=== PATIENT | female | born 1940 | race African-American/Black ===

== ENCOUNTER 2016-09-16 12:01 | Inpatient (IN) | payer MEDICARE ==
[~2016-09-16] VITALS: Ht 157.5 cm; Wt 85.5 kg
[~2016-09-16 12:01] MED LIST: AMOXICILLIN500 MG PO; ASPIRIN LOW DOS81 M2 PO; ASPIRIN LOW DOS81 MG PO; ATORVASTATIN CA20 MG PO; CARDIZEM CD 180 PO; CARDIZEM CD240 MG PO; CEPHALEXIN500 MG PO; CHLORTHALIDONE25 MG PO; CIPRO500 MG OR; CIPROFLOXACN500 MG PO; CLONIDINE0.1 MG PO; CRESTOR10 MG PO; DILTIAZEM90 M1 PO; FERR SULFATE325 MG PO; FUROSEMIDE40 MG PO; GLIPIZIDE ER5 MG PO; GLIPIZIDE10 MG PO; JANUVIA50 MG PO; LISINOPRIL20 MG PO; LYRICA50 MG PO; METRONIDAZOL500 MG PO; MULTI VIT PO; NESINA25 MG PO; NO MEDS; PERCOCET 5/325M1 TAB OR; PHENERGAN25 MG/TAB PO; ROBITUSSIN AC10 ML PO; TRAMADOL HCL50 MG PO; ULTRAM50 MG PO
[2016-09-16] MEDS ORDERED: GLIPIZIDE10 MG PO (12:23)
[2016-09-16] MEDS ORDERED: LISINOPRIL10 MG PO (12:23)
[2016-09-16] MEDS ORDERED: PAIN RELIEF PO (12:24)
[2016-09-16 13:19] LABS: HEMATOCRIT 36.1 % (37.0-47.0); HEMOGLOBIN 10.8 g/dl (12.0-16.0); MEAN CELL VOLUME 72.3 fL CALC (80.0-100.0); MEAN CORPUSCULAR HGB 21.6 pG CALC (26.0-32.0); MEAN CORPUSCULAR HGB CONC 29.9 g/L CALC (32.0-36.0); NEUT# 19.34 thou/uL (2.00-7.15); RED BLOOD COUNT 4.99 mill/uL (4.20-5.60); RED CELL DISTRI WIDTH 15.8 % (11.5-15.5)
[2016-09-16 13:29] LABS: BILIRUBIN, TOTAL 0.3 mg/dL (0.0-1.4); CALCIUM 10.1 mg/dL (8.4-10.2); CREATININE 2.8 mg/dL (0.5-1.0); TOTAL PROTEIN 7.1 g/dL (6.3-8.2)
[2016-09-16 13:32] LABS: POTASSIUM 6.7 mmol/l (3.5-5.1)
[2016-09-16 17:36] LABS: CALCIUM 8.7 mg/dL (8.4-10.2); CREATININE 2.8 mg/dL (0.5-1.0)
[2016-09-16 17:40] LABS: POTASSIUM 6.6 mmol/l (3.5-5.1)
[2016-09-16 21:30] VITALS: BP 140/42
[2016-09-16 21:45] VITALS: BP 134/66
[2016-09-16 21:58] LABS: CALCIUM 8.3 mg/dL (8.4-10.2); CREATININE 2.7 mg/dL (0.5-1.0)
[2016-09-16 22:00] VITALS: BP 140/54
[2016-09-16 22:01] LABS: POTASSIUM 6.5 mmol/l (3.5-5.1)
[2016-09-16 22:03] LABS: URINE BILIRUBIN - DIPSTICK NEGATIVE (NEGATIVE); URINE BLOOD DIPSTICK LARGE (NEGATIVE); URINE CLARITY CLOUDY; URINE COLOR YELLOW; URINE GLUCOSE - DIPSTICK 100 mg/dL (NEGATIVE); URINE KETONE NEGATIVE (NEGATIVE); URINE LEUK ESTERASE NEGATIVE (NEGATIVE); URINE NITRITE - DIPSTICK NEGATIVE (Negative); URINE PH 5.5 (4.5-8.0); URINE PROTEIN - DIPSTICK >=300 mg/dL (NEG-TRACE); URINE UROBILINOGEN - DIPSTICK 0.2 E.U./dL (0.2)
[2016-09-16 22:09] LABS: URINE BACTERIA FEW hpf; URINE HYALINE CAST FEW lpf (NONE-RARE); URINE MUCUS MODERATE hpf (NONE-FEW); URINE RBC 25-50 RBC/hpf (0-5); URINE SQUAMOUS EPITHELIAL CELL FEW EPI/hpf (0-FEW); URINE WAXY CAST FEW lpf
[2016-09-16 22:15] VITALS: BP 139/52
[2016-09-16 23:00] VITALS: BP 156/53
[2016-09-17] VITALS (17 sets, daily range): BP systolic 110–198; BP diastolic 41–110
[2016-09-17 02:51] LABS: CREATININE 2.2 mg/dL (0.5-1.0)
[2016-09-17 02:54] LABS: POTASSIUM 5.7 mmol/l (3.5-5.1)
[2016-09-17 06:46] LABS: HEMATOCRIT 30.5 % (37.0-47.0); HEMOGLOBIN 8.9 g/dl (12.0-16.0); IMMATURE GRANULOCYTES 1.4 % (0.0-1.0); MEAN CELL VOLUME 74.2 fL CALC (80.0-100.0); MEAN CORPUSCULAR HGB 21.7 pG CALC (26.0-32.0); MEAN CORPUSCULAR HGB CONC 29.2 g/L CALC (32.0-36.0); NEUT# 11.94 thou/uL (2.00-7.15); RED BLOOD COUNT 4.11 mill/uL (4.20-5.60); RED CELL DISTRI WIDTH 15.9 % (11.5-15.5)
[2016-09-17 07:08] LABS: CALCIUM 8.1 mg/dL (8.4-10.2); POTASSIUM 5.1 mmol/l (3.5-5.1)
[2016-09-18] VITALS (18 sets, daily range): BP systolic 120–203; BP diastolic 37–106
[2016-09-18 04:55] LABS: CALCIUM 8.3 mg/dL (8.4-10.2); CREATININE 1.2 mg/dL (0.5-1.0); POTASSIUM 4.5 mmol/l (3.5-5.1)
[2016-09-18 05:57] LABS: HEMATOCRIT 31.4 % (37.0-47.0); HEMOGLOBIN 9.1 g/dl (12.0-16.0); IMMATURE GRANULOCYTES 0.9 % (0.0-1.0); MEAN CELL VOLUME 74.6 fL CALC (80.0-100.0); MEAN CORPUSCULAR HGB 21.6 pG CALC (26.0-32.0); NEUT# 10.41 thou/uL (2.00-7.15); RED BLOOD COUNT 4.21 mill/uL (4.20-5.60); RED CELL DISTRI WIDTH 15.9 % (11.5-15.5)
[2016-09-19] VITALS (10 sets, daily range): BP systolic 95–210; BP diastolic 41–79
[2016-09-19 04:42] LABS: CALCIUM 8.4 mg/dL (8.4-10.2); CREATININE 1.1 mg/dL (0.5-1.0); POTASSIUM 4.5 mmol/l (3.5-5.1)
[2016-09-19 05:29] LABS: HEMOGLOBIN 8.6 g/dl (12.0-16.0); MEAN CELL VOLUME 74.8 fL CALC (80.0-100.0); MEAN CORPUSCULAR HGB 21.4 pG CALC (26.0-32.0); MEAN CORPUSCULAR HGB CONC 28.7 g/L CALC (32.0-36.0); NEUT# 11.05 thou/uL (2.00-7.15); RED BLOOD COUNT 4.01 mill/uL (4.20-5.60); RED CELL DISTRI WIDTH 15.9 % (11.5-15.5)
[2016-09-19 06:36] LABS: URINE BLOOD DIPSTICK LARGE (NEGATIVE); URINE CLARITY CLEAR; URINE COLOR YELLOW; URINE GLUCOSE - DIPSTICK 100 mg/dL (NEGATIVE); URINE KETONE NEGATIVE (NEGATIVE); URINE LEUK ESTERASE SMALL (Negative); URINE NITRITE - DIPSTICK POSITIVE (Negative); URINE PH 5.5 (4.5-8.0); URINE PROTEIN - DIPSTICK 100 mg/dL (NEG-TRACE)
[2016-09-19 06:55] LABS: URINE BILIRUBIN - DIPSTICK NEGATIVE (NEGATIVE); URINE RBC TNTC RBC/hpf (0-5)
[2016-09-19 06:56] LABS: URINE BACTERIA FEW hpf; URINE HYALINE CAST RARE lpf (NONE-RARE); URINE MUCUS FEW hpf (NONE-FEW); URINE SQUAMOUS EPITHELIAL CELL RARE EPI/hpf (0-FEW)
[2016-09-19 06:57] LABS: URINE FINE GRAN CAST MODERATE lpf
[2016-09-19 06:59] LABS: URINE RED BLOOD CELL CAST RARE lpf
[2016-09-20 01:24] VITALS: BP 139/70
[2016-09-20 05:27] VITALS: BP 147/71
[2016-09-20 06:17] LABS: HEMATOCRIT 27.3 % (37.0-47.0); HEMOGLOBIN 7.9 g/dl (12.0-16.0); IMMATURE GRANULOCYTES 1.9 % (0.0-1.0); MEAN CORPUSCULAR HGB CONC 28.9 g/L CALC (32.0-36.0); NEUT# 12.85 thou/uL (2.00-7.15); RED BLOOD COUNT 3.59 mill/uL (4.20-5.60); RED CELL DISTRI WIDTH 16.4 % (11.5-15.5)
[2016-09-20 06:37] LABS: ALBUMIN 2.8 g/dL (3.2-5.0); BUN 25 mg/dL (8-23); CALCIUM 8.6 mg/dL (8.4-10.2); CARBON DIOXIDE 23 mmol/l (22-30); CHLORIDE 110 mmol/l (95-108); GFR 54 ML/MIN (>=60 (CALC)); GFR FOR AFR.AMER. > 60 ML/MIN (>=60 (CALC)); GLUCOSE 187 mg/dL (82-115); POTASSIUM 4.5 mmol/l (3.5-5.1); SODIUM 140 mmol/l (137-146)
[2016-09-20 11:02] VITALS: BP 141/71
[2016-09-20 15:55] VITALS: BP 165/56
[2016-09-20 19:23] VITALS: BP 176/62
[2016-09-20 23:32] VITALS: BP 147/63
[2016-09-21] VITALS (10 sets, daily range): BP systolic 119–172; BP diastolic 32–66
[2016-09-21 03:00] LABS: ANION GAP 12 (6-22 (CALC)); BUN 24 mg/dL (8-23); BUN/CREATININE RATIO 26 (12-20 (CALC)); CALCIUM 8.5 mg/dL (8.4-10.2); CARBON DIOXIDE 21 mmol/l (22-30); CHLORIDE 112 mmol/l (95-108); GFR 54 ML/MIN (>=60 (CALC)); GFR FOR AFR.AMER. > 60 ML/MIN (>=60 (CALC)); GLUCOSE 152 mg/dL (82-115); SODIUM 141 mmol/l (137-146)
[2016-09-21 03:51] LABS: HEMATOCRIT 23.9 % (37.0-47.0); IMMATURE GRANULOCYTES 3.5 % (0.0-1.0); MEAN CELL VOLUME 75.9 fL CALC (80.0-100.0); MEAN CORPUSCULAR HGB 22.2 pG CALC (26.0-32.0); MEAN CORPUSCULAR HGB CONC 29.3 g/L CALC (32.0-36.0); NEUT# 14.95 thou/uL (2.00-7.15); RED BLOOD COUNT 3.15 mill/uL (4.20-5.60); RED CELL DISTRI WIDTH 16.7 % (11.5-15.5)
[2016-09-21] MEDS ORDERED: NEURONTIN300 MG PO (11:11)
[2016-09-21] MEDS ORDERED: IRON325 M1 PO (11:12)
[2016-09-21 18:37] LABS: HEMATOCRIT 25.2 % (37.0-47.0); HEMOGLOBIN 7.5 g/dl (12.0-16.0)
[2016-09-22 04:16] VITALS: BP 162/83
[2016-09-22 05:48] LABS: HEMATOCRIT 25.8 % (37.0-47.0); HEMOGLOBIN 7.7 g/dl (12.0-16.0); IMMATURE GRANULOCYTES 3.3 % (0.0-1.0); MEAN CELL VOLUME 79.4 fL CALC (80.0-100.0); MEAN CORPUSCULAR HGB 23.7 pG CALC (26.0-32.0); MEAN CORPUSCULAR HGB CONC 29.8 g/L CALC (32.0-36.0); NEUT# 17.17 thou/uL (2.00-7.15); RED BLOOD COUNT 3.25 mill/uL (4.20-5.60); RED CELL DISTRI WIDTH 18.2 % (11.5-15.5)
[2016-09-22 06:00] LABS: ALBUMIN 2.9 g/dL (3.2-5.0); BILIRUBIN, TOTAL 1.6 mg/dL (0.0-1.4); CALCIUM 8.5 mg/dL (8.4-10.2); CREATININE 1.2 mg/dL (0.5-1.0); POTASSIUM 4.3 mmol/l (3.5-5.1); TOTAL PROTEIN 5.6 g/dL (6.3-8.2)
[2016-09-22 07:49] VITALS: BP 148/55
[2016-09-22 11:09] VITALS: BP 186/50
[2016-09-22 15:05] VITALS: BP 140/50
[2016-09-22 15:20] VITALS: BP 186/50
== END 2016-09-22 16:08 | DRG 871 ==
LOC: ED 12:01 → ED-I 14:47 → ED 17:24 → ICU 17:25 → MS2 09-19 16:16
PROVIDERS: Emergency Medicine; Internal Medicine Nephrology; Nurse Practitioner Family; ADMIT Internal Medicine; ATTEND Internal Medicine
PROC: 0T9B70Z Drainage of Bladder with Drainage Device, Via Natural or Artificial Opening (ICD-10-PCS; principal; 2016-09-16)
PROC: 0T778DZ Dilation of Left Ureter with Intraluminal Device, Via Natural or Artificial Opening Endoscopic (ICD-10-PCS; 2016-09-16)
PROC: BT1F1ZZ Fluoroscopy of Left Kidney, Ureter and Bladder using Low Osmolar Contrast (ICD-10-PCS; 2016-09-16)
PROC: 30233N1 Transfusion of Nonautologous Red Blood Cells into Peripheral Vein, Percutaneous Approach (ICD-10-PCS; 2016-09-21)
PROC: 0T9B70Z Drainage of Bladder with Drainage Device, Via Natural or Artificial Opening (ICD-10-PCS; 2016-09-21)
DX: A41.9 Sepsis, unspecified organism (principal); E13.10 Other specified diabetes mellitus with ketoacidosis without coma; N17.9 Acute kidney failure, unspecified; N13.6 Pyonephrosis; R65.20 Severe sepsis without septic shock; E78.5 Hyperlipidemia, unspecified; E87.5 Hyperkalemia; N32.89 Other specified disorders of bladder; N21.0 Calculus in bladder; N32.3 Diverticulum of bladder; E11.22 Type 2 diabetes mellitus with diabetic chronic kidney disease; I12.9 Hypertensive chronic kidney disease with stage 1 through stage 4 chronic kidney disease, or unspecified chronic kidney disease; N18.3 Chronic kidney disease, stage 3 (moderate); R09.89 Other specified symptoms and signs involving the circulatory and respiratory systems; E11.40 Type 2 diabetes mellitus with diabetic neuropathy, unspecified; R31.9 Hematuria, unspecified; D50.0 Iron deficiency anemia secondary to blood loss (chronic); Z90.5 Acquired absence of kidney; Z79.84 Long term (current) use of oral hypoglycemic drugs
CPT/HCPCS: J0692; P9016; Q9967

== ENCOUNTER 2016-12-27 10:49 | Emergency (ER) | payer MEDICARE ==
[~2016-12-27] VITALS: Ht 157.5 cm; Wt 79.0 kg
[~2016-12-27 10:49] MED LIST changes: +IRON325 M1 PO; +LEVEMIR FL100 UNIT/M SC; +LISINOPRIL10 MG PO; +NEURONTIN300 MG PO; +PAIN RELIEF PO
[2016-12-27 12:14] LABS: HEMATOCRIT 37.9 % (37.0-47.0); HEMOGLOBIN 11.4 g/dl (12.0-16.0); IMMATURE GRANULOCYTES 0.8 % (0.0-1.0); MEAN CELL VOLUME 74.2 fL CALC (80.0-100.0); MEAN CORPUSCULAR HGB 22.3 pG CALC (26.0-32.0); MEAN CORPUSCULAR HGB CONC 30.1 g/L CALC (32.0-36.0); NEUT# 9.47 thou/uL (2.00-7.15); RED BLOOD COUNT 5.11 mill/uL (4.20-5.60); RED CELL DISTRI WIDTH 15.2 % (11.5-15.5); URINE BILIRUBIN - DIPSTICK NEGATIVE (NEGATIVE); URINE BLOOD DIPSTICK LARGE (NEGATIVE); URINE GLUCOSE - DIPSTICK >=1000 mg/dL (NEGATIVE); URINE KETONE NEGATIVE (NEGATIVE); URINE LEUK ESTERASE NEGATIVE (NEGATIVE); URINE NITRITE - DIPSTICK NEGATIVE (Negative); URINE PH 5.5 (4.5-8.0); URINE PROTEIN - DIPSTICK 100 mg/dL (NEG-TRACE); URINE SPECIFIC GRAVITY 1.015; URINE UROBILINOGEN - DIPSTICK 0.2 E.U./dL (0.2)
[2016-12-27 12:21] LABS: URINE CLARITY BLOODY; URINE COLOR RED
[2016-12-27 12:22] LABS: URINE RBC TNTC RBC/hpf (0-5)
[2016-12-27 12:23] LABS: ALBUMIN 3.7 g/dL (3.2-5.0); BILIRUBIN, TOTAL 0.8 mg/dL (0.0-1.4); CALCIUM 9.6 mg/dL (8.4-10.2); CREATININE 1.4 mg/dL (0.5-1.0)
[2016-12-27 13:05] LABS: MYOGLOBIN 51 ng/mL (0 - 62)
[2016-12-27 14:48] LABS: POTASSIUM 4.5 mmol/l (3.5-5.1)
[2016-12-27 15:21] VITALS: BP 196/65
== END 2016-12-27 15:27 | disposition home or self-care (01) ==
LOC: ED 10:49
PROVIDERS: Emergency Medicine
DX: E11.65 Type 2 diabetes mellitus with hyperglycemia (principal); Z79.4 Long term (current) use of insulin; N93.9 Abnormal uterine and vaginal bleeding, unspecified; I12.9 Hypertensive chronic kidney disease with stage 1 through stage 4 chronic kidney disease, or unspecified chronic kidney disease; N18.9 Chronic kidney disease, unspecified; I25.10 Atherosclerotic heart disease of native coronary artery without angina pectoris

== ENCOUNTER 2017-01-12 07:41 | Day surgery (SDC) | payer MEDICARE ==
[2017-01-12 09:17] LABS: HEMATOCRIT 37.7 % (37.0-47.0); HEMOGLOBIN 11.1 g/dl (12.0-16.0); IMMATURE GRANULOCYTES 0.9 % (0.0-1.0); MEAN CELL VOLUME 74.4 fL CALC (80.0-100.0); MEAN CORPUSCULAR HGB 21.9 pG CALC (26.0-32.0); MEAN CORPUSCULAR HGB CONC 29.4 g/L CALC (32.0-36.0); NEUT# 8.86 thou/uL (2.00-7.15); RED BLOOD COUNT 5.07 mill/uL (4.20-5.60); RED CELL DISTRI WIDTH 15.4 % (11.5-15.5)
[2017-01-12 09:36] LABS: ALBUMIN 3.6 g/dL (3.2-5.0); BILIRUBIN, TOTAL 0.5 mg/dL (0.0-1.4); CALCIUM 9.7 mg/dL (8.4-10.2); CREATININE 1.2 mg/dL (0.5-1.0); TOTAL PROTEIN 6.8 g/dL (6.3-8.2)
[2017-01-12 09:49] LABS: ACT PARTIAL THROMBO TIME 26.7 SECONDS (20.0-32.5)
[2017-01-12] MEDS ORDERED: PYRIDIUM200 MG PO (11:51)
[2017-01-12] MEDS ORDERED: BACTRIM DS1 TAB PO (11:51)
[2017-01-12] MEDS ORDERED: NORCO1 TA1 PO (11:51)
[2017-01-12 12:27] VITALS: BP 171/74
[2017-01-12 13:47] LABS: INTERNATIONAL NORMALIZED RATIO 0.9 RATIO (0.7-1.3)
== END 2017-01-12 12:50 | disposition home or self-care (01) ==
LOC: ORM 07:41 → ENDO 07:41 → ORM 12:50
PROVIDERS: ATTEND Urology
PROC: 0TC18ZZ Extirpation of Matter from Left Kidney, Via Natural or Artificial Opening Endoscopic (ICD-10-PCS; principal; 2017-01-12)
PROC: 0T778DZ Dilation of Left Ureter with Intraluminal Device, Via Natural or Artificial Opening Endoscopic (ICD-10-PCS; 2017-01-12)
PROC: BT1FYZZ Fluoroscopy of Left Kidney, Ureter and Bladder using Other Contrast (ICD-10-PCS; 2017-01-12)
PROC: 0TP98DZ Removal of Intraluminal Device from Ureter, Via Natural or Artificial Opening Endoscopic (ICD-10-PCS; 2017-01-12)
DX: N20.0 Calculus of kidney (principal); E11.22 Type 2 diabetes mellitus with diabetic chronic kidney disease; E11.40 Type 2 diabetes mellitus with diabetic neuropathy, unspecified; I12.9 Hypertensive chronic kidney disease with stage 1 through stage 4 chronic kidney disease, or unspecified chronic kidney disease; N18.3 Chronic kidney disease, stage 3 (moderate); E78.5 Hyperlipidemia, unspecified; N93.9 Abnormal uterine and vaginal bleeding, unspecified; Z90.5 Acquired absence of kidney
CPT/HCPCS: Q9967

== ENCOUNTER → 2017-12-09 | Outpatient (REF) | payer MEDICARE ==
[~2017-12-09] MED LIST changes: +BACTRIM DS1 TAB PO; +LISINOPRIL2.5 MG PO; +NORCO1 TA1 PO; +PYRIDIUM200 MG PO
[2017-12-09 09:39] LABS: URINE BILIRUBIN - DIPSTICK NEGATIVE (NEGATIVE); URINE BLOOD DIPSTICK NEGATIVE (NEGATIVE); URINE COLOR YELLOW; URINE GLUCOSE - DIPSTICK 100 mg/dL (NEGATIVE); URINE KETONE NEGATIVE (NEGATIVE); URINE LEUK ESTERASE NEGATIVE (NEGATIVE); URINE NITRITE - DIPSTICK NEGATIVE (Negative); URINE PROTEIN - DIPSTICK 100 mg/dL (NEG-TRACE); URINE SPECIFIC GRAVITY 1.025; URINE UROBILINOGEN - DIPSTICK 0.2 E.U./dL (0.2)
[2017-12-09 09:41] LABS: HEMATOCRIT 33.5 % (37.0-47.0); HEMOGLOBIN 9.5 g/dl (12.0-16.0); IMMATURE GRANULOCYTES 0.5 % (0.0-5.0); MEAN CELL VOLUME 79.2 fL CALC (80.0-100.0); MEAN CORPUSCULAR HGB 22.5 pG CALC (26.0-32.0); MEAN CORPUSCULAR HGB CONC 28.4 g/L CALC (32.0-36.0); NEUT# 7.95 thou/uL (2.00-7.15); RED BLOOD COUNT 4.23 mill/uL (4.20-5.60); RED CELL DISTRI WIDTH 16.2 % (11.5-15.5); URINE CLARITY CLEAR; URINE MUCUS MODERATE hpf (NONE-FEW)
[2017-12-09 10:06] LABS: ALBUMIN 3.5 g/dL (3.2-5.0); BILIRUBIN, TOTAL 0.2 mg/dL (0.0-1.4); MAGNESIUM 1.9 mg/dL (1.6-2.3); TOTAL PROTEIN 6.7 g/dL (6.3-8.2)
== END | disposition home or self-care (01) ==
LOC: LAB 09:03
PROVIDERS: ATTEND Nurse Practitioner Family
DX: D64.9 Anemia, unspecified (principal); N18.3 Chronic kidney disease, stage 3 (moderate)

== ENCOUNTER 2018-04-03 10:04 | Emergency (ER) | payer MEDICARE ==
[~2018-04-03] VITALS: Ht 157.5 cm; Wt 84.1 kg
[2018-04-03 10:56] LABS: ALBUMIN 3.9 g/dL (3.2-5.0); BILIRUBIN, TOTAL 0.3 mg/dL (0.0-1.4); CREATININE 1.9 mg/dL (0.5-1.0); POTASSIUM 4.6 mmol/l (3.5-5.1); TOTAL PROTEIN 7.1 g/dL (6.3-8.2)
[2018-04-03 11:01] LABS: HEMATOCRIT 28.6 % (37.0-47.0); IMMATURE GRANULOCYTES 0.9 % (0.0-5.0); MEAN CELL VOLUME 80.3 fL CALC (80.0-100.0); MEAN CORPUSCULAR HGB 22.5 pG CALC (26.0-32.0); NEUT# 15.59 thou/uL (2.00-7.15); RED BLOOD COUNT 3.56 mill/uL (4.20-5.60); RED CELL DISTRI WIDTH 16.7 % (11.5-15.5)
[2018-04-03] MEDS ORDERED: ZOFRAN ODT4 MG PO (11:22)
[2018-04-03] MEDS ORDERED: FLONASE AL50 MCG/ACT NAB (11:23)
[2018-04-03] MEDS ORDERED: HYDRALAZINE25 MG PO (11:24)
[2018-04-03] MEDS ORDERED: NOVOLIN N100 UNIT/1 SC ×2 (11:25)
[2018-04-03] MEDS ORDERED: KAYEXALATE15 GM/60 M PO (11:29)
[2018-04-03] MEDS ORDERED: LISINOPRIL20 MG PO (11:30)
[2018-04-03 13:01] VITALS: BP 161/61
[2018-04-03 13:25] VITALS: BP 184/56
[2018-04-03 13:46] VITALS: BP 184/56
== END 2018-04-03 13:46 | disposition short-term general hospital (02) ==
LOC: ED 10:04
PROVIDERS: Family Medicine
PROC: 30233N1 Transfusion of Nonautologous Red Blood Cells into Peripheral Vein, Percutaneous Approach (ICD-10-PCS; principal; 2018-04-03)
DX: K92.2 Gastrointestinal hemorrhage, unspecified (principal); I50.9 Heart failure, unspecified; D64.9 Anemia, unspecified; R06.02 Shortness of breath; R53.1 Weakness; R53.83 Other fatigue; I10 Essential (primary) hypertension; K64.4 Residual hemorrhoidal skin tags
CPT/HCPCS: P9016